=== PATIENT | female | born 1985 | race Caucasian/White ===

== ENCOUNTER 2022-08-03 21:37 | Emergency (ER) | payer OTHER ==
[2022-08-03 22:29] LABS: Basophils % (A) 0 %; Eosinophils # (A) 0.3 k/uL (0-0.7); Eosinophils % (A) 2 %; HCT 40.7 % (34.0-46.0); HGB 13.2 gm/dL (11.4-16.0); Hypochromasia Slight; Lymphocytes # (A) 1.6 k/uL (1.0-4.8); Lymphocytes % (A) 14 %; MCH 26.2 pg (25.0-35.0); MCHC 32.4 g/dL (31.0-37.0); MCV 80.8 fL (80.0-100.0); Mean Platelet Volume 7.3; Monocytes # (A) 0.6 k/uL (0-1.0); Monocytes % (A) 5 %; Neutrophils # (A) 8.8 k/uL (1.3-7.7); Neutrophils % (A) 77 %; Platelet Count 409 k/uL (150-450); RBC 5.04 m/uL (3.80-5.40); RDW 14.8 % (11.5-15.5); WBC 11.4 k/uL (3.8-10.6)
[2022-08-03 23:07] LABS: ALT 21 U/L (4-34); African American GFR (CKD) >90 (>60 ml/min/1.73 sqM); Albumin 4.1 g/dL (3.5-5.0); Anion Gap 12 mmol/L; Blood Urea Nitrogen 7 mg/dL (7-17); Calcium 9.1 mg/dL (8.4-10.2); Carbon Dioxide 24 mmol/L (22-30); Chloride 103 mmol/L (98-107); Glucose 103 mg/dL (74-99); Non-African American GFR(CKD) >90 (>60 ml/min/1.73 sqM); Sodium 139 mmol/L (137-145); Total Bilirubin 0.7 mg/dL (0.2-1.3); Total Protein 7.5 g/dL (6.3-8.2)
[2022-08-03 23:41] LABS: AST 30 U/L (14-36); Alkaline Phosphatase 62 U/L (38-126); Potassium 4.3 mmol/L (3.5-5.1)
[2022-08-04] MEDS ORDERED: KETOROLAC 15 MG/ML 1 ML VIAL IM STA (00:49)
[2022-08-04] MEDS ORDERED: CLINDAMYCIN 150 MG CAP PO STA (01:43)
--- NOTE | 2022-08-04 01:47 | ED ---
General Adult HPI - General Chief complaint: Skin/Abscess/Foreign Body Stated complaint: Right Breast Pain and hardness Time Seen by Provider: 08/03/22 23:40 Source: patient Mode of arrival: ambulatory Limitations: no limitations - History of Present Illness Initial comments: This is a 36-year-old female with a past medical history including breast cancer status post bilateral mastectomy and reconstructive surgery in April 2022 presents emergency department for pain and swelling and redness over the right upper breast. The patient stated that over the last 1 week she had increasing redness, swelling and pain to this area and she became concerned so she came to the emergency department for evaluation. The patient did report that she was nauseous with vomiting one week ago but stated that she did not have any nausea currently. The patient stated that she was resting comfortably and had intermittent chills but without any reported fevers at home. The patient doesn't a follow-up with her breast surgeon on Thursday but stated the pain became so severe she wanted to come to the emergency department today. The patient denied any further acute pain at this time. - Related Data Previous Rx's Medication Instructions Recorded Clindamycin [Cleocin] 450 mg PO TID 7 Days #63 cap 08/04/22 Allergies Allergy/AdvReac Type Severity Reaction Status Date / Time No Known Allergies Allergy Verified 08/03/22 21:42 Review of Systems ROS Statement: Those systems with pertinent positive or pertinent negative responses have been documented in the HPI. ROS Other: All systems not noted in ROS Statement are negative. Past Medical History Past Medical History: Cancer Additional Past Medical History / Comment(s): breast CA History of Any Multi-Drug Resistant Organisms: None Reported Additional Past Surgical History / Comment(s): d/c Past Psychological History: Anxiety, Depression, Panic Disorder Smoking Status: Never smoker Past Alcohol Use History: None Reported Past Drug Use History: None Reported General Exam Limitations: no limitations General appearance: alert, in no apparent distress Head exam: Present: atraumatic, normocephalic, normal inspection Eye exam: Present: normal appearance, PERRL Pupils: Present: normal accommodation ENT exam: Present: normal exam, normal oropharynx, mucous membranes moist Neck exam: Present: normal inspection Respiratory exam: Present: normal lung sounds bilaterally, other (Erythema and swelling noted to the superior aspect of the right breast above the incision. There was tenderness palpation as well as induration noted. There was however no punctate area of swelling or drainage noted.). Absent: respiratory distress Cardiovascular Exam: Present: regular rate, normal rhythm, normal heart sounds GI/Abdominal exam: Present: soft, normal bowel sounds Extremities exam: Present: normal inspection, full ROM Back exam: Present: normal inspection, full ROM Neurological exam: Present: alert, oriented X3, CN II-XII intact Psychiatric exam: Present: normal affect, normal mood Skin exam: Present: warm, dry Course Vital Signs 08/03/22 08/04/22 21:38 01:53 Temperature 99.4 F 97.7 F Pulse Rate 96 76 Respiratory 18 16 Rate Blood Pressure 126/83 117/68 O2 Sat by Pulse 97 97 Oximetry Medical Decision Making - Medical Decision Making Was pt. sent in by a medical professional or institution (, PA, SENIOR PATIENT ACCOUNT REPRESENTATIVE, urgent care, hospital, or halfway...) When possible be specific @ -No Did you speak to anyone other than the patient for history (EMS, parent, family, police, friend...)? What history was obtained from this source @ -No Did you review nursing and triage notes (agree or disagree)? Why? @ -I reviewed and agree with nursing and triage notes Were old charts reviewed (outside hosp., previous admission, EMS record, old EKG, old radiological studies, urgent care reports/EKG's, halfway records)? Report findings @ -No old charts were reviewed Differential Diagnosis (chest pain, altered mental status, abdominal pain women, abdominal pain men, vaginal bleeding, weakness, fever, dyspnea, syncope, headache, dizziness, GI bleed, back pain, seizure, CVA, palpatations, mental health)? @ -Breast abscess, breast cellulitis, postop infection EKG interpreted by me (3pts min.). @ -None X-rays interpreted by me (1pt min.). @ -None done CT interpreted by me (1pt min.). @ -None done U/S interpreted by me (1pt. min.). @ -A limited ultrasound of the right breast was obtained and was interpreted by myself showing a hypoechoic and complex area in the right breast the 1 o'clock position measuring 4.9 x 5.9 x 2.2 cm. This was an ill-defined fluid with a possible organizing abscess. There was also hypoechoic area seen within the right axilla measuring 1.1 x 0.8 x 0.6 cm. There was also a thinwall fluid collection in this area but was too small to characterize per radiology. What testing was considered but not performed or refused? (CT, X-rays, U/S, l abs)? Why? @ -None What meds were considered but not given or refused? Why? @ -None Did you discuss the management of the patient with other professionals (professionals i.e. DrJerald, PA, SENIOR PATIENT ACCOUNT REPRESENTATIVE, lab, RT, psych nurse, social work case manager, rn cardiac cath, teacher, booking police officer, case preparer and liner)? Give summary @ -No Was smoking cessation discussed for >3mins.? @ -No Was critical care preformed (if so, how long)? @ -No Were there social determinants of health that impacted care today? How? (Homelessness, low income, unemployed, alcoholism, drug addiction, transportation, low edu. Level, literacy, decrease access to med. care, detention, rehab)? @ -No Was there de-escalation of care discussed even if they declined (Discuss DNR or withdrawal of care, Hospice)? DNR status @ -No What co-morbidities impacted this encounter? (DM, HTN, Smoking, COPD, CAD, Cance r, CVA, ARF, Chemo, Hep., AIDS, mental health diagnosis, sleep apnea, morbid obesity)? @ -Breast cancer status post bilateral mastectomy and reconstructive surgery Was patient admitted / discharged? Hospital course, mention meds given and route, prescriptions, significant lab abnormalities, going to OR and other pertinent info. @ -The patient was seen and evaluated emergency department. Physical exam, the patient was resting in bed without any acute distress. Vital signs admission were stable. Due to the nature the patient's complaints, laboratory workup as well as an ultrasound of the right breast was obtained. Laboratory workup was within normal limits. Ultrasound showed a large area of possible organizing abscess per radiology. I did also ultrasound the patient at the bedside and confirmed the area of possible organizing abscess without any definitive abscess noted. Due to the patient's physical exam findings and findings and ultrasound, the patient was started on antibiotics. The patient was given a dose of clindamycin in the emergency department as well as a prescription for clindamycin to be taken at home. As there was no breast surgeon in the hospital and due to the patient's recent reconstructive surgery with a breast surgeon at the [facility], patient and I had a sugar decision making discu ssion regarding discharge and the patient to follow-up with her breast surgeon as an outpatient. She did agree to call the office first thing in the morning and to get a follow-up appointment while taking her antibiotics. The patient was also advised report back to the emergency department if she had worsening fevers, chills as well as any nausea and vomiting. The patient was also advised report back if should worsening swelling. The patient was agreeable to this and all of her questions were answered reportedly. The patient was discharged home in stable condition to call her breast surgeon in the morning for follow-up appointment in the office. Undiagnosed new problem with uncertain prognosis? @ -No Drug Therapy requiring intensive monitoring for toxicity (Heparin, Nitro, Insulin, Cardizem)? @ -No Were any procedures done? @ -No Diagnosis/symptom? @ -Right breast cellulitis versus early abscess Acute, or Chronic, or Acute on Chronic? @ -Acute Uncomplicated (without systemic symptoms) or Complicated (systemic symptoms)? @ -Uncomplicated Side effects of treatment? @ -No Exacerbation, Progression, or Severe Exacerbation? @ -No Poses a threat to life or bodily function? How? (Chest pain, [place], PR, pneumonia, PE, COPD, DKA, ARF, appy, cholecystitis, CVA, Diverticulitis, Homicidal, Suicidal, threat to staff... and all critical care pts) @ -No - Lab Data Result diagrams: 08/03/22 22:07 08/03/22 22:07 Lab Results 08/03/22 08/03/22 Range/Units 22:07 22:07 WBC 11.4 H (3.8-10.6) k/uL RBC 5.04 (3.80-5.40) m/uL Hgb 13.2 (11.4-16.0) gm/dL Hct 40.7 (34.0-46.0) % MCV 80.8 (80.0-100.0) fL MCH 26.2 (25.0-35.0) pg MCHC 32.4 (31.0-37.0) g/dL RDW 14.8 (11.5-15.5) % Plt Count 409 (150-450) k/uL MPV 7.3 Neutrophils % 77 % Lymphocytes % 14 % Monocytes % 5 % Eosinophils % 2 % Basophils % 0 % Neutrophils # 8.8 H (1.3-7.7) k/uL Lymphocytes # 1.6 (1.0-4.8) k/uL Monocytes # 0.6 (0-1.0) k/uL Eosinophils # 0.3 (0-0.7) k/uL Basophils # 0.0 (0-0.2) k/uL Hypochromasia Slight Sodium 139 (137-145) mmol/L Potassium 4.3 (3.5-5.1) mmol/L Chloride 103 (98-107) mmol/L Carbon Dioxide 24 (22-30) mmol/L Anion Gap 12 mmol/L BUN 7 (7-17) mg/dL Creatinine 0.74 (0.52-1.04) mg/dL Est GFR (CKD-EPI)AfAm >90 (>60 ml/min/1.73 sqM) Est GFR (CKD-EPI)NonAf >90 (>60 ml/min/1.73 sqM) Glucose 103 H (74-99) mg/dL Calcium 9.1 (8.4-10.2) mg/dL Total Bilirubin 0.7 (0.2-1.3) mg/dL AST 30 (14-36) U/L ALT 21 (4-34) U/L Alkaline Phosphatase 62 (38-126) U/L Total Protein 7.5 (6.3-8.2) g/dL Albumin 4.1 (3.5-5.0) g/dL Disposition Clinical Impression: Cellulitis of breast Disposition: HOME SELF-CARE Condition: Stable Instructions (If sedation given, give patient instructions): Cellulitis (ED) Additional Instructions: Please contact her breast surgeon in the morning for a follow-up appointment for further workup and evaluation. Prescriptions: Clindamycin [Cleocin] 450 mg PO TID 7 Days #63 cap Is patient prescribed a controlled substance at d/c from ED?: No Referrals: Nonstaff,Physician [Primary Care Provider] - 1-2 days Time of Disposition: 01:00
[2022-08-04 01:54] VITALS: BP 117/68; PULSE 76; RESP 16; TEMP 97.7
--- NOTE | 2022-08-05 09:27 | USB ---
Reason for Exam: Clinical finding. Risk Values: Becky 5 year model risk: 0.3%. NCI Lifetime model risk: 6.8%. Findings: A limited US of the breast at patient's area of swelling and redness was performed. Scanned area of redness and swelling right breast 11 o'clock through 2 o'clock were scanned. Anechoic area seen right breast 12 o'clock measurin.7 x 1.0 x 0.7 cm. Suspected simple thin-walled cyst or focal fluid collection. Hypoechoic/complex appearing area was seen right breast 1 o'clock at patient's main area of concern measuring approximately: 4.9 x 5.9 x 2.2 cm. Ill-defined fluid. Possibly organizing abscess. Hypoechoic area seen within the right axilla: 1.1 x 0.8 x 0.6 cm.. This area is too small to characterize. Possible thin-walled fluid collection. Overall Assessment: Probably benign, BI-RAD 3 Management: Clinical Management of the right breast. Surgical Consultation of the right breast. Consider repeat ultrasound in 6-8 weeks' time to reassess. Advise surgical evaluation. Suspect inflammatory change in the area of clinical concern. No thick walled drainable abscess currently however. Electronically signed and approved by: Vidal Garcia M.D.
== END 2022-08-04 01:54 | disposition home or self-care (01) ==
LOC: EC 21:37
DX: N61.0 Mastitis without abscess (principal); Z86.59 Personal history of other mental and behavioral disorders
CPT/HCPCS: 36415; 80053; 85025; 87040; 96372; 99283

== ENCOUNTER → 2023-03-16 | Outpatient (CLI) | payer OTHER ==
--- NOTE | 2023-03-17 12:22 | BD ---
EXAMINATION TYPE: Axial Bone Density DATE OF EXAM: 03/16/2023 CLINICAL HISTORY: 37 years old Female. ICD-10 CODE: M85.88 OTH DISRD OF BONE DENSITY AND STRUCTURE, OT Height: 63" Weight: 156lbs FRAX RISK QUESTIONS: Alcohol (3 or more units per day): No Family History (Parent hip fracture): No Glucocorticoids (More than 3mos): No (Ex: prednisone, prednisolone, methylprednisolone, dexamethasone, and hydrocortisone). History of Fracture in Adulthood: Yes, pinky Secondary Osteoporosis: 1. Type 1 Diabetes: No 2. Hyperthyroidism: No 3. Menopause before 45: 32 due to chemo 4. Malnutrition: No 5. Chronic liver disease: No Rheumatoid Arthritis: No Current Tobacco Use: No RISK FACTORS HISTORY OF: Hip Fracture (Right/Left): No Spine Fracture: No History of Wrist Fracture: No Surgery to Spine/Hip(right/left)/Wrist (right/left): No MEDICATIONS: Thyroid Medications: No Osteoporosis Medications: No EXAM MEASUREMENTS: Bone mineral densitometry was performed using the sailsquare System. Bone mineral density as measured about the Lumbar spine is: ----- L1-L4(G/cm2): 1.044 T Score Values are as follows: ----- L1: -1.8 ----- L2: -1.1 ----- L3: -0.8 ----- L4: -1.1 ----- L1-L4: -1.1 Z Score Values are as follows: ----- L1: -2.0 ----- L2: -1.3 ----- L3: -1.0 ----- L4: -1.3 ----- L1-L4: -1.3 Baseline @MPH Bone mineral density about the R hip (g/cm2): 1.028 Bone mineral density about the L hip (g/cm2): 1.065 T Score values are as follows: -----R Neck: -0.7 -----L Neck: -0.4 -----R Total: 0.2 -----L Total: 0.5 Z Score values are as follows: -----R Neck: -0.4 -----L Neck: -0.1 -----R Total: 0.2 -----L Total: 0.5 Baseline @MPH FRAX%s: N/A IMPRESSION: Osteopenia (T Score between -2.5 and -1). There is slightly increased risk of fracture and the patient may be considered for treatment. Re-Screen 2-5 years. NOTE: T-SCORE=SD OF THE YOUNG ADULT MEAN.
== END | disposition home or self-care (01) ==
LOC: RADBDWWP 15:49
PROVIDERS: ATTEND Internal Medicine
DX: M85.88 Other specified disorders of bone density and structure, other site (principal); C50.812 Malignant neoplasm of overlapping sites of left female breast; Z71.3 Dietary counseling and surveillance; Z78.0 Asymptomatic menopausal state
CPT/HCPCS: 77080

== ENCOUNTER → 2023-06-20 | Outpatient (CLI) | payer OTHER ==
--- NOTE | 2023-06-20 16:11 | MR ---
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 COMPARISON: None TECHNIQUE: Multi planar, multi sequence imaging was performed through the brain including: T1, T2, In version recovery, susceptibility weighted imaging and gradient echo imaging and Diffusion weighted im aging. The patient was then given intravenous contrast and multi planar, T1 fat-saturation images wer e obtained. IV Contrast: 8 cc Gadavist FINDINGS: The quijano-white junctions, ventricular system, basal cisterns appear unremarkable. Diffusion-weighted imaging shows no evidence of restricted diffusion to suggest acute/subacute infarct. Intracranial ar terial flow voids are maintained. Midline structures show no abnormality. Scattered foci of high T2 s ignal intensity are seen within the periventricular white matter. The susceptibility weighted images do not reveal any evidence for micro-hemorrhage. After administration of gadolinium, no abnormal enha ncement is seen. The bone marrow signal is within normal limits. Paranasal sinuses and mastoid air cells: Mild scattered paranasal sinus disease. Visualized orbits: Orbital contents are intact. IMPRESSION: 1. No evidence of intracranial mass, acute/subacute infarct, or abnormal enhancement. 2. Nonspecific white matter changes which is abnormal for patient's age. Findings could be sequela of migraines versus demyelination versus other etiologies.
== END | disposition home or self-care (01) ==
LOC: RADMRIMAIN 14:48
PROVIDERS: ATTEND Internal Medicine
DX: G93.89 Other specified disorders of brain (principal); C50.812 Malignant neoplasm of overlapping sites of left female breast; G43.909 Migraine, unspecified, not intractable, without status migrainosus
CPT/HCPCS: 70553; A9585

== ENCOUNTER → 2024-08-19 | Outpatient (CLI) | payer OTHER ==
--- NOTE | 2024-08-20 18:04 | MR ---
INDICATION: Patient age:Female; 38 years old; Reason for study: G43.009 M54.2 M54.9; [facility]. History of breast cancer. COMPARISON: MRI brain 06/20/2023. TECHNIQUE: Multi planar, multi sequence imaging was performed through the brain. The patient was then given 7 cc of Gadobutrol intravenously and multi planar, T1 fat-saturation images were obtained. MS protocol utilized. FINDINGS: The quijano-white junctions, ventricular system, basal cisterns appear unremarkable. Age-appropriate cer ebral parenchymal volume. Diffusion-weighted imaging shows no evidence of restricted diffusion to sug gest acute/subacute infarct. There is surrounding vasogenic edema now in the left middle cranial elva a temporal lobe. Intracranial arterial flow voids are maintained. Empty sella morphology. Similar non enhancing scattered foci of high T2/FLAIR signal intensity are seen within the subcortical white barbara er. The susceptibility weighted images a few foci of blooming artifact within the left middle cranial fossa temporal lobe related to prior microhemorrhage versus calcification. Left parietal prominent p erivascular space. Heterogeneously enhancing left extra-axial infiltrative lesion within the left middle cranial fossa. There is extension into the left frontal bone and left sphenoid wing with abutment of the left latera l and superior rectus muscles. This mass measures grossly 3.5 x 2.6 cm with the left frontal bone com ponent measuring up to 4.1 cm in length. The mass abuts the left cavernous sinus. There is associated dural thickening enhancement involving the left frontal and tempora. Invasion into the left masticat or space. Left frontal bone enhancing 1.2 cm lesion (series 702, image 33). Enhancing right parietal bone near the vertex 1.1 cm lesion (series 702, image 48). Right frontal bone near the vertex enhancing 0.8 cm lesion (series 702, image 47). No extension to the inner outer tables identified. The globes are unremarkable. The left intraconal space is preserved. The mass abuts the left lateral ocular rectus muscle without definitive invasion. Minimal mucosal thickening in the ethmoid sinuses a nd bilateral maxillary sinuses. There is invasion into the left sphenoid sinus. IMPRESSION: 1. Enhancing mass centered within the left sphenoid wing with invasion into the surrounding structur es including the left sphenoid sinus and left middle cranial fossa extra-axial space. There is abutme nt of the left lateral rectus muscle and left cavernous sinus. Additional few enhancing osseous metas tasis. Findings are highly concerning for metastasis in setting of prior breast cancer. 2. No evidence of acute or subacute infarct. 3. Nonenhancing nonspecific white matter changes. Etiologies include demyelinating disease versus sm all vessel ischemic disease versus chronic migraines versus other. [facility], , 08/20/2024 6:01 PM [facility], , 08/20/2024 6:02 PM
--- NOTE | 2024-08-20 18:16 | MR ---
INDICATION: Patient age:Female; 38 years old; Reason for study: G43.009 M54.2 M54.9; [facility]. COMPARISON: MR brain the same date. TECHNIQUE: Multi planar, multi sequence imaging was performed of the cervical spine. No Gadolinium wa s given. MS protocol utilized. FINDINGS: Alignment: The cervical vertebral bodies have preserved heights. Alignment is within normal limits gi miguel patient positioning. Bones: Bone signal is within normal limits. No discrete lesion in a fight. Anterior osteophytosis at C5-C6. Cord: The spinal cord is unremarkable with regards to their signal intensity and morphology. Discs: Mild multilevel disc desiccation without disc height loss. C2-C3: No significant disc pathology. The spinal canal is patent. No neural foraminal stenosis. C3-C4: No significant disc pathology. The spinal canal is patent. No neural foraminal stenosis. C4-C5: No significant disc pathology. The spinal canal is patent. No neural foraminal stenosis. C5-C6: Eccentric right disc bulge with minimal effacement of the anterior thecal sac. No significant spinal canal stenosis. Uncovertebral joint hypertrophy. Left neural foramen is patent. Moderate right neuroforaminal stenosis. C6-C7: No significant disc pathology. The spinal canal is patent. No neural foraminal stenosis. C7-T1: No significant disc pathology. The spinal canal is patent. No neural foraminal stenosis. Other: No visualized cervical adenopathy. IMPRESSION: 1. No evidence for disc herniation or significant spinal canal stenosis. 2. Eccentric right disc bulge at C5-C6 resulting in moderate right neural foraminal stenosis. 3. No definitive cervical osseous lesion identified to suggest metastasis within the cervical spine. 4. No suspicious spinal cord lesion to suggest demyelination process. TECHNIQUE: Multi planar, multi sequence imaging was performed of the lumbar spine. No gadolinium wa s given. FINDINGS: Alignment: The lumbar vertebral bodies have preserved heights and alignment. Cord: The conus medullaris and the distal spinal cord appear unremarkable with regards to their signa l intensity and morphology. Bones/Discs: Several T1 hypointense/T2 hyperintense/STIR hyperintense osseous lesions identified. The se involve the T10, T11, T12 vertebral bodies. Involvement of the L1, L2, L3 and L5 vertebral bodies with additional involvement of the sacrum. Largest is identified within the L2 vertebral body L1-L2: No significant disc pathology. Spinal canal is patent. The neural foramen are patent. L2-L3: No significant disc pathology. Spinal canal is patent. The neural foramen are patent. L3-L4: The disc is rounded along its posterior without evidence of herniation. There is an annular fi ssure identified. No spinal canal stenosis. No neural foraminal stenosis L4-L5: The disc is rounded along its posterior without evidence of herniation. There is an annular fi ssure identified. No spinal canal stenosis. No neural foraminal stenosis L5-S1: The disc is rounded along its posterior without evidence of herniation. There is an annular fi ssure identified. No spinal canal stenosis. No neural foraminal stenosis Other findings: No visualized retroperitoneal adenopathy identified. IMPRESSION: 1. Multiple osseous lesions within the visualized thoracolumbar sacral spine concerning for metastasi s in the setting of concurrent brain findings. 2. No definitive evidence of disc herniation or significant spinal canal stenosis. [facility], , 08/20/2024 6:14 PM
== END | disposition home or self-care (01) ==
LOC: RADMRIMAIN 20:45
PROVIDERS: ATTEND Emergency Medicine Emergency Medical Services
DX: M48.02 Spinal stenosis, cervical region (principal); M50.322 Other cervical disc degeneration at C5-C6 level; G43.009 Migraine without aura, not intractable, without status migrainosus; Z85.3 Personal history of malignant neoplasm of breast; C79.51 Secondary malignant neoplasm of bone; R90.82 White matter disease, unspecified; M89.8X8 Other specified disorders of bone, other site
CPT/HCPCS: 70553; 72141; 72148; A9585

== ENCOUNTER → 2024-08-26 | Outpatient (CLI) | payer OTHER ==
--- NOTE | 2024-08-28 07:36 | PE ---
EXAMINATION TYPE: PET CT fusion whole body DATE OF EXAM: 08/26/2024 CLINICAL INDICATION:Female, 38 years old with history of C50.812 BREAST CANCER; TECHNIQUE: Following the intravenous administration of 1.34 mCi of F-18 FDG, whole body images are performed from skull vertex to the toes. Images are reviewed on the computer in the coronal, axial, and sagittal planes. Reconstructed rotating images are created on independent workstation and review ed on the computer. A non-contrast CT is performed in conjunction with the PET scan. Glucose level 106 mg/dL CT DLP: 957 mGycm, Automated exposure control for dose reduction was used. COMPARISON: CT None, PET/CT None, MRI: 08/19/2024, 06/20/2023 FINDINGS: Mediastinal SUV mean is 2.9. Hepatic parenchyma SUV mean is 2.9. SKULL BASE AND NECK: Known left greater sphenoid wing destructive lesion with extension into the extra axial space of the left middle cranial fossa into the left sphenoid sinus redemonstrated. Demonstrates a maximum SUV of 13.0. CHEST, MEDIASTINUM, AND HILAR REGION: Postsurgical changes of the bilateral breasts and left axilla. No suspicious FDG activity. ABDOMEN AND PELVIS: No suspicious radiotracer activity. MUSCULOSKELETAL STRUCTURES: Scattered regions of FDG activity within the osseous structures. Left proximal femur with a maximum SUV of 6.3. L5 vertebral body with a maximum SUV of 5.6. L1 vertebral body with a maximum SUV of 5.1. T10 vertebral body with a max SUV of 4.4. T8 vertebral body with a maximum SUV of 5.9. C2 vertebral body with a max SUV of 5.7. OTHER CT: Cardiomegaly. Elevation the right hemidiaphragm. Hepatic steatosis. Cholelithiasis. Submuco lissette fat deposition of the ascending colon. Postsurgical changes of the anterior abdominal wall with s urgical clips identified. 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 Scattere d FDG avid osseous metastasis as described above. [facility], , 08/28/2024 7:33 AM
== END | disposition home or self-care (01) ==
LOC: RADPETMAIN 07:05
PROVIDERS: ATTEND Internal Medicine
DX: C50.812 Malignant neoplasm of overlapping sites of left female breast (principal); C79.51 Secondary malignant neoplasm of bone
CPT/HCPCS: 78816; A9552